=== PATIENT | male | born 1945 | race Caucasian/White ===

== ENCOUNTER 2019-03-14 22:04 | Inpatient (IN) | payer MEDICARE ==
[~2019-03-14] VITALS: Ht 172.7 cm; Wt 55.8 kg
[~2019-03-14 22:04] MED LIST: IPRA4AER INH; LEVO500T47 PO; METH2TAB PO
--- NOTE | 2019-03-14 22:14 | NUR ---
PT BIB [facility] FOR SOB FROM [facility]. PT NORMALLY WEARS 2 L O2 FOR COPD. PT WOKE UP FROM [facility] WITHOUT O2 ON AND WAS 76 ON RA. 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 O2 SATS IMPROVED WITH BREATHIN TREATMENT. VSS. RT AT BEDSIDE. CALL LIGHT IN REACH
[2019-03-14] MEDS ORDERED: PLEASE ENTER HEIGHT AND WEIGHT MC SCH (22:30)
--- NOTE | 2019-03-14 22:35 | NUR ---
PT MEDICATED WITH PREDNISONE. PT SATING 86 ON 2 L. O2 INCREASED TO 4 L. PA NOTIFIED OF PTS INCREASED DEMAND. PT IN NAD, CALL LIGHT IN REACH
[2019-03-14 22:38] LABS: BASOPHILS # (AUTO) 0.04 x10^3/uL (0-0.1); BASOPHILS % (AUTO) 0 % (0-1); EOSINOPHILS # (AUTO) 0.24 x10^3/uL (0-0.4); EOSINOPHILS % (AUTO) 2 % (1-7); LYMPHOCYTES # (AUTO) 1.55 x10^3/uL (1-3.4); LYMPHOCYTES % (AUTO) 12 % (22-44); MD NO; MEAN CORPUSCULAR HEMOGLOBIN 32.7 pg (27.5-34.5); MEAN CORPUSCULAR HGB CONC 31.9 g/dL (33.2-36.2); MEAN CORPUSCULAR VOLUME 102.5 fL (81-97); MEAN PLATELET VOLUME 9.4 fL (7.4-10.4); MONOCYTES # (AUTO) 1.25 x10^3/uL (0.2-0.8); MONOCYTES % (AUTO) 10 % (2-9); NEUTROPHILS # (AUTO) 9.71 x10^3/uL (1.8-6.8); NEUTROPHILS % (AUTO) 76 % (42-75); PLATELET COUNT 181 x10^3/uL (130-400); RED BLOOD COUNT 4.92 x10^6/uL (4.38-5.82); RED CELL DISTRIBUTION WIDTH 15.3 % (9.4-14.8)
[2019-03-14 22:48] LABS: ANION GAP 2 mmol/L (5-15); CALCIUM 8.1 mg/dL (8.5-10.1); CHLORIDE 112 mmol/L (98-107); CREATININE 0.87 mg/dL (0.7-1.3)
[2019-03-14 22:49] LABS: ALBUMIN 3.5 g/dL (3.4-5.0)
[2019-03-14 22:52] LABS: TROPONIN I < 0.015 ng/mL (0.000-0.045)
--- NOTE | 2019-03-14 23:46 | NUR ---
Jamaal rn: Awaiting blood cultures for abx.
[2019-03-14] MEDS ORDERED: CEFTRIAXONE PMX 1GM/50ML 50 ML ONE (23:47)
[2019-03-15] MEDS ORDERED: CEFTRIAXONE PMX 1GM/50ML 50 ML IVPB ONE
[2019-03-15 02:30] VITALS: BP 138/78
[2019-03-15] MEDS ORDERED: ENALAPRILAT 1.25 MG/ML, 2ML IVPush PRN (02:30)
[2019-03-15] MEDS ORDERED: ACETAMINOPHEN 325 MG TABLET PO PRN (02:30)
[2019-03-15] MEDS ORDERED: ALBUTEROL/IPRATROPIUM 2.5MG/0.5MG, 3 ML NPPB PRN (02:30)
[2019-03-15] MEDS: AZITHROMYCIN 500 MG in SODIUM CHLORIDE 0.9% 250 ML IV SCH (03:10)
[2019-03-15] MEDS: ENOXAPARIN 40 MG/0.4 ML SQ SCH (03:10)
[2019-03-15] MEDS: methylPREDNISolone SOD SUCC 125 MG/2 ML IVPush SCH ×4 (03:10→20:12)
[2019-03-15 04:36] VITALS: BP 138/78
[2019-03-15 06:48] VITALS: BP 124/70
[2019-03-15] MEDS: GUAIFENESIN ER 600 MG TABLET PO SCH ×2 (11:09→20:12)
[2019-03-15 12:37] VITALS: BP 117/71
[2019-03-15 20:59] VITALS: BP 119/64
[2019-03-15 21:48] LABS: AMPHETAMINE SCREEN, URINE Negative (Negative); BARBITURATE SCREEN, URINE Negative (Negative); BENZODIAZEPINE SCREEN, URINE Positive (Negative); CANNABINOID SCREEN, URINE Positive (Negative); COCAINE SCREEN, URINE Negative (Negative); METHADONE SCREEN, URINE Negative (Negative); OPIATE SCREEN, URINE Negative (Negative)
[2019-03-16] MEDS: CEFTRIAXONE PMX 1GM/50ML 50 ML IV SCH (00:10)
[2019-03-16 02:00] VITALS: BP 122/65
[2019-03-16] MEDS: methylPREDNISolone SOD SUCC 125 MG/2 ML IVPush SCH ×4 (02:41→22:45)
[2019-03-16] MEDS: AZITHROMYCIN 500 MG in SODIUM CHLORIDE 0.9% 250 ML IV SCH (02:42)
[2019-03-16 07:05] VITALS: BP 111/57
[2019-03-16] MEDS: GUAIFENESIN ER 600 MG TABLET PO SCH ×2 (08:48→22:46)
[2019-03-16] MEDS: ENOXAPARIN 40 MG/0.4 ML SQ SCH (08:48)
[2019-03-16 14:00] VITALS: BP 115/62
[2019-03-16 19:34] VITALS: BP 131/64
[2019-03-17] MEDS: CEFTRIAXONE PMX 1GM/50ML 50 ML IV SCH (00:19)
[2019-03-17 01:03] VITALS: BP 136/68
[2019-03-17] MEDS: methylPREDNISolone SOD SUCC 125 MG/2 ML IVPush SCH ×3 (03:40→15:42)
[2019-03-17] MEDS: AZITHROMYCIN 500 MG in SODIUM CHLORIDE 0.9% 250 ML IV SCH (03:40)
[2019-03-17 04:56] LABS: ANION GAP 4 mmol/L (5-15); CALCIUM 7.9 mg/dL (8.5-10.1); CHLORIDE 109 mmol/L (98-107)
[2019-03-17 07:23] VITALS: BP 138/77
[2019-03-17] MEDS: GUAIFENESIN ER 600 MG TABLET PO SCH (09:38)
[2019-03-17] MEDS: ENOXAPARIN 40 MG/0.4 ML SQ SCH (09:38)
[2019-03-17] MEDS ORDERED: AZIT500T PO (12:31)
[2019-03-17] MEDS ORDERED: CEFD300C37 PO (12:31)
[2019-03-17] MEDS ORDERED: GUAI600T31 PO (12:31)
[2019-03-17] MEDS ORDERED: PRED10TA PO (12:31)
[2019-03-17] MEDS ORDERED: TIOT18CA INH (12:41)
[2019-03-17] MEDS ORDERED: FLUT1DIS3 INH (12:41)
[2019-03-17] MEDS ORDERED: IPRA3AMP30 INH (12:41)
[2019-03-17 12:53] VITALS: BP 132/70
== END 2019-03-17 18:25 | disposition home or self-care (01) | DRG 871 ==
LOC: ED 22:54 → EDIP 03-15 01:13 → 3N 03-15 02:20
PROVIDERS: ADMIT Family Medicine; ATTEND Internal Medicine
DX: A41.9 Sepsis, unspecified organism (principal); J15.9 Unspecified bacterial pneumonia; J96.21 Acute and chronic respiratory failure with hypoxia; D75.89 Other specified diseases of blood and blood-forming organs; J43.9 Emphysema, unspecified; Z59.0 Homelessness; Z91.19 Patient's noncompliance with other medical treatment and regimen; Z99.81 Dependence on supplemental oxygen; Z72.0 Tobacco use
CPT/HCPCS: 36415; 36600; 71045; 80048; 80307; 82040; 82607; 82803; 83605; 84145; 84443; 84484; 85025; 87040; 93005; 94640; 96365; G0378; J0456; J0696; J1650; J2930; J7050; J7512

== ENCOUNTER 2019-10-15 15:10 | Inpatient (IN) | payer MEDICARE ==
[~2019-10-15] VITALS: Ht 172.7 cm; Wt 57.0 kg
[~2019-10-15 15:10] MED LIST changes: +AZIT500T PO; +CEFD300C37 PO; +FLUT1DIS3 INH; +GUAI600T31 PO; +IPRA3AMP30 INH; +PRED10TA PO; +TIOT18CA INH
--- NOTE | 2019-10-15 15:29 | NUR ---
BREAK RN. PT BIB [facility] FROM [facility] [place]. PT STATES C/C SOB AND CHRONIC COUGH. PT STATES HE SHOULD BE WEARING HOME O2, HOWEVER HAS NOT HAD HOME O2 X2 MONTHS. PER EMS, PT'S RA SAT 78%, CORRECTED TO 98% WITH 2L NC. PT DENIES CP CURRENTLY. PT PLACED ON MONITORS AND EKG COMPLETED. AWAITING ERMD ASSESSMENT.
[2019-10-15 15:59] LABS: BASOPHILS # (AUTO) 0.01 x10^3/uL (0-0.1); BASOPHILS % (AUTO) 0 % (0-1); EOSINOPHILS # (AUTO) 0.11 x10^3/uL (0-0.4); EOSINOPHILS % (AUTO) 2 % (1-7); LYMPHOCYTES # (AUTO) 1.03 x10^3/uL (1-3.4); LYMPHOCYTES % (AUTO) 15 % (22-44); MD NO; MEAN CORPUSCULAR HEMOGLOBIN 32.1 pg (27.5-34.5); MEAN CORPUSCULAR HGB CONC 32.9 g/dL (33.2-36.2); MEAN PLATELET VOLUME 9.9 fL (7.4-10.4); MONOCYTES # (AUTO) 0.67 x10^3/uL (0.2-0.8); MONOCYTES % (AUTO) 10 % (2-9); NEUTROPHILS # (AUTO) 4.95 x10^3/uL (1.8-6.8); NEUTROPHILS % (AUTO) 73 % (42-75); PLATELET COUNT 163 x10^3/uL (130-400); RED BLOOD COUNT 5.42 x10^6/uL (4.38-5.82); RED CELL DISTRIBUTION WIDTH 14.5 % (9.4-14.8)
[2019-10-15 16:14] LABS: ALANINE AMINOTRANSFERASE 20 U/L (12-78); ALBUMIN 3.1 g/dL (3.4-5.0); ANION GAP 4 mmol/L (5-15); CHLORIDE 112 mmol/L (98-107); CREATININE 0.96 mg/dL (0.7-1.3)
[2019-10-15 16:17] LABS: ALKALINE PHOSPHATASE 71 U/L (45-117); BILIRUBIN,TOTAL 0.5 mg/dL (0.2-1.0); TOTAL PROTEIN 6.3 g/dL (6.4-8.2); TROPONIN I < 0.015 ng/mL (0.000-0.045)
[2019-10-15] MEDS ORDERED: ALBUTEROL SULFATE 2.5 MG/3 ML NPPB ONE (16:30)
[2019-10-15] MEDS ORDERED: methylPREDNISolone SOD SUCC 125 MG/2 ML IV ONE (16:30)
[2019-10-15] MEDS ORDERED: FUROSEMIDE 40 MG/4 ML IV ONE (16:30)
[2019-10-15] MEDS ORDERED: FUROSEMIDE 40 MG/4 ML ONE (16:41)
[2019-10-15] MEDS ORDERED: methylPREDNISolone SOD SUCC 125 MG/2 ML ONE (16:41)
[2019-10-15] MEDS ORDERED: ALBUTEROL SULFATE 2.5 MG/3 ML ONE (16:41)
--- NOTE | 2019-10-15 18:10 | NUR ---
PT REPORTS FEELING MUCH BETTER AFTER MEDICATIONS, CALM RESTING IN BED. HAS NO REQUEST AT THIS TIME.
--- NOTE | 2019-10-15 18:14 | NUR ---
PT REPORTS THAT HE SHOULD BE ON 2L NC AT ALL TIMES BUT RAN OUT ABOUT A MONTH AGO.
[2019-10-15] MEDS ORDERED: DOXYCYCLINE 100 MG in DEXTROSE 5% 250 ML IV SCH (19:30)
[2019-10-15] MEDS ORDERED: ONDANSETRON 2MG/ML, 2ML IVPush PRN (19:30)
--- NOTE | 2019-10-15 19:52 | NUR ---
Pt states he has not taken any of his rx in approx 3 months.
[2019-10-15 20:06] VITALS: BP 129/77
[2019-10-15] MEDS ORDERED: ALBUTEROL SULFATE 2.5 MG/3 ML NPPB PRN (20:30)
[2019-10-15] MEDS: DOXYCYCLINE 100MG TABLET PO SCH (20:40)
[2019-10-16 02:57] VITALS: BP 104/64
[2019-10-16 06:25] LABS: BASOPHILS # (AUTO) 0.02 x10^3/uL (0-0.1); BASOPHILS % (AUTO) 0 % (0-1); EOSINOPHILS # (AUTO) 0.02 x10^3/uL (0-0.4); EOSINOPHILS % (AUTO) 0 % (1-7); LYMPHOCYTES # (AUTO) 0.51 x10^3/uL (1-3.4); LYMPHOCYTES % (AUTO) 6 % (22-44); MD NO; MEAN CORPUSCULAR HEMOGLOBIN 31.7 pg (27.5-34.5); MEAN CORPUSCULAR HGB CONC 32.1 g/dL (33.2-36.2); MEAN PLATELET VOLUME 10.3 fL (7.4-10.4); MONOCYTES # (AUTO) 0.16 x10^3/uL (0.2-0.8); MONOCYTES % (AUTO) 2 % (2-9); NEUTROPHILS # (AUTO) 8.27 x10^3/uL (1.8-6.8); NEUTROPHILS % (AUTO) 92 % (42-75); PLATELET COUNT 160 x10^3/uL (130-400); RED BLOOD COUNT 5.53 x10^6/uL (4.38-5.82); RED CELL DISTRIBUTION WIDTH 14.2 % (9.4-14.8)
[2019-10-16 06:26] LABS: ANION GAP 3 mmol/L (5-15); CALCIUM 8.6 mg/dL (8.5-10.1); CHLORIDE 107 mmol/L (98-107); CREATININE 0.97 mg/dL (0.7-1.3)
[2019-10-16 06:29] LABS: TROPONIN I < 0.015 ng/mL (0.000-0.045)
[2019-10-16] MEDS ORDERED: ALBUTEROL/IPRATROPIUM 2.5MG/0.5MG, 3 ML NPPB SCH ×2 (07:00→15:00)
[2019-10-16 07:34] VITALS: BP 96/63
[2019-10-16] MEDS: ENOXAPARIN 40 MG/0.4 ML SQ SCH (08:00)
[2019-10-16] MEDS: DOXYCYCLINE 100MG TABLET PO SCH (08:30)
[2019-10-16] MEDS ORDERED: BUDESONIDE 0.5 MG/2 ML INHA NPPB SCH (09:00)
[2019-10-16] MEDS: GUAIFENESIN 200 MG TABLET PO SCH ×3 (11:27→20:23)
[2019-10-16 15:11] VITALS: BP 112/63
[2019-10-16 17:10] VITALS: BP 143/89
[2019-10-16 19:14] VITALS: BP 101/57
[2019-10-17 00:45] VITALS: BP 95/57
[2019-10-17] MEDS: GUAIFENESIN 200 MG TABLET PO SCH ×4 (05:25→20:46)
[2019-10-17] MEDS: ALBUTEROL SULFATE 200 PUFFS/8.5 GR INH INH PRN (05:49)
[2019-10-17] MEDS: ALBUTEROL-IPRATROPIUM MDI INH INH SCH ×4 (06:27→20:46)
[2019-10-17 07:07] VITALS: BP 114/71
[2019-10-17] MEDS: ENOXAPARIN 40 MG/0.4 ML SQ SCH (08:00)
[2019-10-17] MEDS: FLUTICASONE/VILANTEROL 200-25MCG/INH INH SCH ×2 (08:18→20:46)
[2019-10-17] MEDS: AZITHROMYCIN 500 MG TABLET PO SCH (08:18)
[2019-10-17 14:04] VITALS: BP 104/51
[2019-10-17] MEDS: methylPREDNISolone SOD SUCC 40 MG/ML IV SCH (15:39)
[2019-10-17 19:13] VITALS: BP 111/66
[2019-10-18 00:08] VITALS: BP 115/70
[2019-10-18] MEDS: GUAIFENESIN 200 MG TABLET PO SCH ×4 (05:06→20:04)
[2019-10-18] MEDS: ALBUTEROL-IPRATROPIUM MDI INH INH SCH ×4 (05:06→20:03)
[2019-10-18] MEDS: methylPREDNISolone SOD SUCC 40 MG/ML IV SCH ×3 (05:06→20:03)
[2019-10-18 07:51] VITALS: BP 134/80
[2019-10-18] MEDS: ENOXAPARIN 40 MG/0.4 ML SQ SCH (08:00)
[2019-10-18] MEDS: AZITHROMYCIN 500 MG TABLET PO SCH (09:35)
[2019-10-18] MEDS: FLUTICASONE/VILANTEROL 200-25MCG/INH INH SCH ×2 (09:35→20:03)
[2019-10-18 13:15] VITALS: BP 116/72
[2019-10-18 19:22] VITALS: BP 115/61
[2019-10-19 00:57] VITALS: BP 101/63
[2019-10-19] MEDS: ALBUTEROL-IPRATROPIUM MDI INH INH SCH ×4 (05:36→21:53)
[2019-10-19] MEDS: GUAIFENESIN 200 MG TABLET PO SCH ×4 (05:36→21:52)
[2019-10-19] MEDS: ENOXAPARIN 40 MG/0.4 ML SQ SCH (08:00)
[2019-10-19 08:37] VITALS: BP 129/77
[2019-10-19] MEDS: AZITHROMYCIN 500 MG TABLET PO SCH (10:22)
[2019-10-19] MEDS: SODIUM CHLORIDE 0.9% 1,000 ML IV SCH (10:22)
[2019-10-19] MEDS: FLUTICASONE/VILANTEROL 200-25MCG/INH INH SCH ×2 (10:22→21:53)
[2019-10-19] MEDS ORDERED: BENZ100C PO (13:44)
[2019-10-19 14:06] VITALS: BP 120/77
[2019-10-19 19:48] VITALS: BP 113/55
[2019-10-20 01:37] VITALS: BP 125/83
[2019-10-20] MEDS: ALBUTEROL-IPRATROPIUM MDI INH INH SCH ×4 (06:13→22:09)
[2019-10-20] MEDS: GUAIFENESIN 200 MG TABLET PO SCH ×4 (06:13→22:09)
[2019-10-20 06:14] LABS: CHLORIDE 107 mmol/L (98-107)
[2019-10-20 06:20] LABS: ANION GAP 4 mmol/L (5-15); CALCIUM 7.7 mg/dL (8.5-10.1); CREATININE 0.88 mg/dL (0.7-1.3)
[2019-10-20 07:57] VITALS: BP 103/62
[2019-10-20] MEDS: ENOXAPARIN 40 MG/0.4 ML SQ SCH (08:00)
[2019-10-20] MEDS: FLUTICASONE/VILANTEROL 200-25MCG/INH INH SCH ×2 (08:30→22:09)
[2019-10-20] MEDS: AZITHROMYCIN 500 MG TABLET PO SCH (08:30)
[2019-10-20] MEDS: SODIUM CHLORIDE 0.9% 1,000 ML IV SCH ×2 (08:38→22:09)
[2019-10-20 14:04] VITALS: BP 103/65
[2019-10-20 20:01] VITALS: BP 115/79
[2019-10-21 01:10] VITALS: BP 114/57
[2019-10-21] MEDS: GUAIFENESIN 200 MG TABLET PO SCH (06:06)
[2019-10-21] MEDS: ALBUTEROL-IPRATROPIUM MDI INH INH SCH ×4 (06:06→21:19)
[2019-10-21 06:49] VITALS: BP 99/55
[2019-10-21] MEDS: ENOXAPARIN 40 MG/0.4 ML SQ SCH (08:00)
[2019-10-21] MEDS: FLUTICASONE/VILANTEROL 200-25MCG/INH INH SCH ×2 (10:02→21:19)
[2019-10-21] MEDS: BENZONATATE 100 MG CAPSULE PO SCH ×3 (10:02→21:18)
[2019-10-21 12:35] VITALS: BP 121/59
[2019-10-21] MEDS: SODIUM CHLORIDE 0.9% 1,000 ML IV SCH (14:30)
[2019-10-21] MEDS: ALBUTEROL SULFATE 200 PUFFS/8.5 GR INH INH PRN (16:26)
[2019-10-21 19:33] VITALS: BP 98/51
[2019-10-22 01:18] VITALS: BP 114/66
[2019-10-22] MEDS: ALBUTEROL-IPRATROPIUM MDI INH INH SCH ×4 (06:02→20:56)
[2019-10-22] MEDS: SODIUM CHLORIDE 0.9% 1,000 ML IV SCH ×2 (06:02→21:02)
[2019-10-22 07:41] VITALS: BP 119/65
[2019-10-22] MEDS: ENOXAPARIN 40 MG/0.4 ML SQ SCH (08:00)
[2019-10-22] MEDS: BENZONATATE 100 MG CAPSULE PO SCH ×3 (08:08→20:57)
[2019-10-22] MEDS: FLUTICASONE/VILANTEROL 200-25MCG/INH INH SCH ×2 (08:08→20:56)
[2019-10-22] MEDS: ALBUTEROL SULFATE 200 PUFFS/8.5 GR INH INH PRN (11:38)
[2019-10-22 13:36] VITALS: BP 120/73
[2019-10-22 19:55] VITALS: BP 125/68
[2019-10-23 00:32] VITALS: BP 105/59
[2019-10-23] MEDS: ALBUTEROL-IPRATROPIUM MDI INH INH SCH ×4 (05:48→20:50)
[2019-10-23 07:40] VITALS: BP 120/77
[2019-10-23] MEDS: ENOXAPARIN 40 MG/0.4 ML SQ SCH (08:00)
[2019-10-23] MEDS: FLUTICASONE/VILANTEROL 200-25MCG/INH INH SCH ×2 (08:27→20:50)
[2019-10-23] MEDS: BENZONATATE 100 MG CAPSULE PO SCH ×3 (08:27→20:51)
[2019-10-23] MEDS: SODIUM CHLORIDE 0.9% 1,000 ML IV SCH (13:25)
[2019-10-23 13:28] VITALS: BP 107/61
[2019-10-23 13:30] VITALS: BP 99/60
[2019-10-23] MEDS: ALBUTEROL SULFATE 200 PUFFS/8.5 GR INH INH PRN (15:28)
[2019-10-23 16:11] VITALS: BP 128/76
[2019-10-23 20:11] VITALS: BP 104/60
[2019-10-24 01:12] VITALS: BP 127/78
[2019-10-24] MEDS: ALBUTEROL-IPRATROPIUM MDI INH INH SCH ×4 (05:17→21:54)
[2019-10-24 07:28] VITALS: BP 104/67
[2019-10-24] MEDS: ENOXAPARIN 40 MG/0.4 ML SQ SCH (08:59)
[2019-10-24] MEDS: FLUTICASONE/VILANTEROL 200-25MCG/INH INH SCH ×2 (08:59→21:53)
[2019-10-24] MEDS: BENZONATATE 100 MG CAPSULE PO SCH ×3 (08:59→21:53)
[2019-10-24] MEDS: SODIUM CHLORIDE 0.9% 1,000 ML IV SCH (09:39)
[2019-10-24 14:12] VITALS: BP 112/70
[2019-10-24 14:39] VITALS: BP 99/62
[2019-10-24 21:30] VITALS: BP 118/74
[2019-10-25 01:24] VITALS: BP 118/71
[2019-10-25 05:32] LABS: CREATININE 0.68 mg/dL (0.7-1.3)
[2019-10-25] MEDS: ALBUTEROL-IPRATROPIUM MDI INH INH SCH ×4 (06:00→21:58)
[2019-10-25] MEDS: ENOXAPARIN 40 MG/0.4 ML SQ SCH (08:00)
[2019-10-25] MEDS: FLUTICASONE/VILANTEROL 200-25MCG/INH INH SCH ×2 (08:29→21:58)
[2019-10-25] MEDS: BENZONATATE 100 MG CAPSULE PO SCH ×3 (08:29→21:58)
[2019-10-25 08:33] VITALS: BP 100/64
[2019-10-25 12:41] VITALS: BP 115/68
[2019-10-25 21:23] VITALS: BP 116/71
[2019-10-26 00:57] VITALS: BP 103/48
[2019-10-26] MEDS: ALBUTEROL-IPRATROPIUM MDI INH INH SCH ×4 (06:17→21:51)
[2019-10-26 07:53] VITALS: BP 120/71
[2019-10-26] MEDS: ENOXAPARIN 40 MG/0.4 ML SQ SCH (08:00)
[2019-10-26] MEDS: BENZONATATE 100 MG CAPSULE PO SCH ×3 (09:02→21:49)
[2019-10-26] MEDS: FLUTICASONE/VILANTEROL 200-25MCG/INH INH SCH ×2 (09:02→21:51)
[2019-10-26 14:32] VITALS: BP 107/66
[2019-10-26 21:44] VITALS: BP 116/70
[2019-10-27 01:50] VITALS: BP 100/65
[2019-10-27] MEDS: ALBUTEROL-IPRATROPIUM MDI INH INH SCH ×4 (07:55→21:32)
[2019-10-27] MEDS: FLUTICASONE/VILANTEROL 200-25MCG/INH INH SCH ×2 (07:55→21:31)
[2019-10-27] MEDS: ENOXAPARIN 40 MG/0.4 ML SQ SCH ×2 (07:55→07:57)
[2019-10-27] MEDS: BENZONATATE 100 MG CAPSULE PO SCH ×3 (07:56→21:31)
[2019-10-27 09:29] VITALS: BP 91/54
[2019-10-27 09:42] VITALS: BP 103/65
[2019-10-27 15:53] VITALS: BP 109/67
[2019-10-27 21:26] VITALS: BP 106/63
[2019-10-28 01:07] VITALS: BP 98/61
[2019-10-28] MEDS: ALBUTEROL-IPRATROPIUM MDI INH INH SCH ×3 (06:34→16:48)
[2019-10-28 06:56] VITALS: BP 107/67
[2019-10-28] MEDS: ENOXAPARIN 40 MG/0.4 ML SQ SCH ×2 (08:00→08:14)
[2019-10-28] MEDS: FLUTICASONE/VILANTEROL 200-25MCG/INH INH SCH ×2 (08:14→20:23)
[2019-10-28] MEDS: BENZONATATE 100 MG CAPSULE PO SCH ×3 (08:14→20:23)
[2019-10-28] MEDS: ALBUTEROL SULFATE 200 PUFFS/8.5 GR INH INH PRN (11:03)
[2019-10-28 13:34] VITALS: BP 111/69
[2019-10-28 18:58] VITALS: BP 108/66
[2019-10-28] MEDS ORDERED: FUROSEMIDE 20 MG/2 ML IV ONE (19:00)
[2019-10-28] MEDS: BUDESONIDE 0.5 MG/2 ML INHA NPPB SCH (19:59)
[2019-10-28] MEDS: ALBUTEROL/IPRATROPIUM 2.5MG/0.5MG, 3 ML NPPB SCH (19:59)
[2019-10-29 01:33] VITALS: BP 106/65
[2019-10-29 06:07] LABS: BASOPHILS # (AUTO) 0.03 x10^3/uL (0-0.1); BASOPHILS % (AUTO) 0 % (0-1); EOSINOPHILS # (AUTO) 0.16 x10^3/uL (0-0.4); EOSINOPHILS % (AUTO) 2 % (1-7); LYMPHOCYTES # (AUTO) 1.23 x10^3/uL (1-3.4); LYMPHOCYTES % (AUTO) 13 % (22-44); MD NO; MEAN CORPUSCULAR HEMOGLOBIN 32.2 pg (27.5-34.5); MEAN CORPUSCULAR HGB CONC 33.1 g/dL (33.2-36.2); MEAN PLATELET VOLUME 9.2 fL (7.4-10.4); MONOCYTES # (AUTO) 0.89 x10^3/uL (0.2-0.8); MONOCYTES % (AUTO) 10 % (2-9); NEUTROPHILS # (AUTO) 7.12 x10^3/uL (1.8-6.8); NEUTROPHILS % (AUTO) 76 % (42-75); PLATELET COUNT 193 x10^3/uL (130-400); RED BLOOD COUNT 5.07 x10^6/uL (4.38-5.82); RED CELL DISTRIBUTION WIDTH 14.6 % (9.4-14.8)
[2019-10-29 06:13] LABS: ANION GAP 1 mmol/L (5-15); CHLORIDE 106 mmol/L (98-107); CREATININE 0.86 mg/dL (0.7-1.3)
[2019-10-29] MEDS: ALBUTEROL/IPRATROPIUM 2.5MG/0.5MG, 3 ML NPPB SCH ×3 (06:30→19:16)
[2019-10-29] MEDS: BUDESONIDE 0.5 MG/2 ML INHA NPPB SCH ×2 (06:30→19:16)
[2019-10-29 06:37] VITALS: BP 115/73
[2019-10-29] MEDS: BENZONATATE 100 MG CAPSULE PO SCH ×3 (07:59→20:06)
[2019-10-29] MEDS: FLUTICASONE/VILANTEROL 200-25MCG/INH INH SCH ×2 (08:00→20:06)
[2019-10-29] MEDS: ENOXAPARIN 40 MG/0.4 ML SQ SCH (08:00)
[2019-10-29 12:23] VITALS: BP 100/64
[2019-10-29 19:32] VITALS: BP 106/62
[2019-10-29 19:42] VITALS: BP 121/72
[2019-10-30 01:16] VITALS: BP 103/59
[2019-10-30] MEDS: ALBUTEROL/IPRATROPIUM 2.5MG/0.5MG, 3 ML NPPB SCH ×4 (03:00→21:25)
[2019-10-30] MEDS: BUDESONIDE 0.5 MG/2 ML INHA NPPB SCH ×2 (06:55→21:25)
[2019-10-30 07:30] VITALS: BP 121/74
[2019-10-30] MEDS: ENOXAPARIN 40 MG/0.4 ML SQ SCH (08:00)
[2019-10-30] MEDS: FLUTICASONE/VILANTEROL 200-25MCG/INH INH SCH ×2 (08:55→20:03)
[2019-10-30] MEDS: BENZONATATE 100 MG CAPSULE PO SCH ×3 (08:55→20:03)
[2019-10-30 14:09] VITALS: BP 116/69
[2019-10-30 20:03] VITALS: BP 111/68
[2019-10-31 01:15] VITALS: BP 105/66
[2019-10-31] MEDS: ALBUTEROL/IPRATROPIUM 2.5MG/0.5MG, 3 ML NPPB SCH ×4 (03:00→20:40)
[2019-10-31 05:44] LABS: ANION GAP 7 mmol/L (5-15); CALCIUM 8.6 mg/dL (8.5-10.1); CHLORIDE 109 mmol/L (98-107)
[2019-10-31 05:45] LABS: CREATININE 0.73 mg/dL (0.7-1.3)
[2019-10-31 05:55] LABS: BASOPHILS # (AUTO) 0.04 x10^3/uL (0-0.1); BASOPHILS % (AUTO) 0 % (0-1); EOSINOPHILS # (AUTO) 0.04 x10^3/uL (0-0.4); EOSINOPHILS % (AUTO) 0 % (1-7); LYMPHOCYTES # (AUTO) 1.09 x10^3/uL (1-3.4); LYMPHOCYTES % (AUTO) 9 % (22-44); MD NO; MEAN CORPUSCULAR HEMOGLOBIN 31.9 pg (27.5-34.5); MEAN CORPUSCULAR HGB CONC 32.6 g/dL (33.2-36.2); MEAN PLATELET VOLUME 9.6 fL (7.4-10.4); MONOCYTES # (AUTO) 0.83 x10^3/uL (0.2-0.8); MONOCYTES % (AUTO) 7 % (2-9); NEUTROPHILS # (AUTO) 10.21 x10^3/uL (1.8-6.8); NEUTROPHILS % (AUTO) 84 % (42-75); PLATELET COUNT 205 x10^3/uL (130-400); RED BLOOD COUNT 5.07 x10^6/uL (4.38-5.82); RED CELL DISTRIBUTION WIDTH 14.5 % (9.4-14.8)
[2019-10-31] MEDS: BUDESONIDE 0.5 MG/2 ML INHA NPPB SCH ×2 (07:13→20:40)
[2019-10-31] MEDS: ENOXAPARIN 40 MG/0.4 ML SQ SCH (08:00)
[2019-10-31] MEDS: BENZONATATE 100 MG CAPSULE PO SCH ×3 (08:44→21:59)
[2019-10-31] MEDS: FLUTICASONE/VILANTEROL 200-25MCG/INH INH SCH ×2 (08:44→21:59)
[2019-10-31 09:00] VITALS: BP 113/73
[2019-10-31 13:53] VITALS: BP 125/72
[2019-10-31 15:00] VITALS: BP 122/75
[2019-10-31 15:02] VITALS: BP 121/71
[2019-10-31 19:13] VITALS: BP 109/60
[2019-11-01 01:01] VITALS: BP 125/64
[2019-11-01] MEDS: ALBUTEROL/IPRATROPIUM 2.5MG/0.5MG, 3 ML NPPB SCH ×2 (03:00→07:19)
[2019-11-01 06:06] LABS: BASOPHILS # (AUTO) 0.02 x10^3/uL (0-0.1); BASOPHILS % (AUTO) 0 % (0-1); EOSINOPHILS # (AUTO) 0.06 x10^3/uL (0-0.4); EOSINOPHILS % (AUTO) 1 % (1-7); LYMPHOCYTES # (AUTO) 1.12 x10^3/uL (1-3.4); LYMPHOCYTES % (AUTO) 11 % (22-44); MD NO; MEAN CORPUSCULAR HEMOGLOBIN 31.9 pg (27.5-34.5); MEAN CORPUSCULAR HGB CONC 32.3 g/dL (33.2-36.2); MEAN PLATELET VOLUME 9.4 fL (7.4-10.4); MONOCYTES # (AUTO) 0.73 x10^3/uL (0.2-0.8); MONOCYTES % (AUTO) 7 % (2-9); NEUTROPHILS # (AUTO) 8.76 x10^3/uL (1.8-6.8); NEUTROPHILS % (AUTO) 82 % (42-75); PLATELET COUNT 193 x10^3/uL (130-400); RED BLOOD COUNT 4.86 x10^6/uL (4.38-5.82); RED CELL DISTRIBUTION WIDTH 14.4 % (9.4-14.8)
[2019-11-01] MEDS: BUDESONIDE 0.5 MG/2 ML INHA NPPB SCH (07:20)
[2019-11-01 07:45] VITALS: BP 132/69
[2019-11-01] MEDS: FLUTICASONE/VILANTEROL 200-25MCG/INH INH SCH ×2 (09:46→20:15)
[2019-11-01] MEDS: ENOXAPARIN 40 MG/0.4 ML SQ SCH (09:46)
[2019-11-01] MEDS: BENZONATATE 100 MG CAPSULE PO SCH ×3 (09:46→20:15)
[2019-11-01 15:03] VITALS: BP 118/71
[2019-11-01 18:30] VITALS: BP 123/76
[2019-11-02 00:21] VITALS: BP 105/58
[2019-11-02 05:28] LABS: BASOPHILS # (AUTO) 0.07 x10^3/uL (0-0.1); BASOPHILS % (AUTO) 1 % (0-1); EOSINOPHILS # (AUTO) 0.06 x10^3/uL (0-0.4); EOSINOPHILS % (AUTO) 1 % (1-7); LYMPHOCYTES % (AUTO) 12 % (22-44); MD NO; MEAN CORPUSCULAR HEMOGLOBIN 31.6 pg (27.5-34.5); MEAN CORPUSCULAR HGB CONC 32.4 g/dL (33.2-36.2); MEAN PLATELET VOLUME 9.6 fL (7.4-10.4); MONOCYTES # (AUTO) 0.83 x10^3/uL (0.2-0.8); MONOCYTES % (AUTO) 8 % (2-9); NEUTROPHILS # (AUTO) 8.04 x10^3/uL (1.8-6.8); NEUTROPHILS % (AUTO) 79 % (42-75); PLATELET COUNT 199 x10^3/uL (130-400); RED BLOOD COUNT 4.94 x10^6/uL (4.38-5.82); RED CELL DISTRIBUTION WIDTH 14.3 % (9.4-14.8)
[2019-11-02 05:37] LABS: ANION GAP 6 mmol/L (5-15); CALCIUM 8.5 mg/dL (8.5-10.1); CHLORIDE 107 mmol/L (98-107)
[2019-11-02 05:38] LABS: CREATININE 0.69 mg/dL (0.7-1.3)
[2019-11-02] MEDS: ENOXAPARIN 40 MG/0.4 ML SQ SCH (07:15)
[2019-11-02] MEDS: FLUTICASONE/VILANTEROL 200-25MCG/INH INH SCH ×2 (08:49→20:57)
[2019-11-02] MEDS: BENZONATATE 100 MG CAPSULE PO SCH ×3 (08:49→20:26)
[2019-11-02 08:55] VITALS: BP 122/71
[2019-11-02 13:34] VITALS: BP 101/63
[2019-11-02 18:27] VITALS: BP 105/69
[2019-11-02 23:49] VITALS: BP 98/61
[2019-11-03 01:54] VITALS: BP 115/71
[2019-11-03] MEDS: ENOXAPARIN 40 MG/0.4 ML SQ SCH (07:18)
[2019-11-03] MEDS: FLUTICASONE/VILANTEROL 200-25MCG/INH INH SCH ×2 (08:14→22:49)
[2019-11-03] MEDS: BENZONATATE 100 MG CAPSULE PO SCH ×3 (08:14→22:49)
[2019-11-03 08:41] VITALS: BP 95/57
[2019-11-03] MEDS: IPRATROPIUM 0.5 MG/2.5 ML INHA HHN SCH ×3 (09:30→21:07)
[2019-11-03 13:02] VITALS: BP 101/57
[2019-11-03] MEDS ORDERED: FLUT1BLS INH (16:20)
[2019-11-03] MEDS ORDERED: PRED10TA PO (16:22)
[2019-11-03 18:44] VITALS: BP 109/70
[2019-11-04] MEDS: IPRATROPIUM 0.5 MG/2.5 ML INHA HHN SCH ×2 (03:15→07:43)
[2019-11-04 05:23] LABS: BASOPHILS # (AUTO) 0.02 x10^3/uL (0-0.1); BASOPHILS % (AUTO) 0 % (0-1); EOSINOPHILS # (AUTO) 0.05 x10^3/uL (0-0.4); EOSINOPHILS % (AUTO) 1 % (1-7); LYMPHOCYTES % (AUTO) 14 % (22-44); MD NO; MEAN CORPUSCULAR HGB CONC 32.7 g/dL (33.2-36.2); MEAN PLATELET VOLUME 9.1 fL (7.4-10.4); MONOCYTES # (AUTO) 0.69 x10^3/uL (0.2-0.8); MONOCYTES % (AUTO) 7 % (2-9); NEUTROPHILS # (AUTO) 7.78 x10^3/uL (1.8-6.8); NEUTROPHILS % (AUTO) 78 % (42-75); PLATELET COUNT 211 x10^3/uL (130-400); RED BLOOD COUNT 5.17 x10^6/uL (4.38-5.82); RED CELL DISTRIBUTION WIDTH 14.4 % (9.4-14.8)
[2019-11-04 05:25] VITALS: BP 118/94
[2019-11-04 05:32] LABS: CALCIUM 8.3 mg/dL (8.5-10.1)
[2019-11-04 05:45] LABS: ANION GAP 4 mmol/L (5-15); CHLORIDE 108 mmol/L (98-107)
[2019-11-04 06:55] VITALS: BP 133/83
[2019-11-04] MEDS: ENOXAPARIN 40 MG/0.4 ML SQ SCH (07:15)
[2019-11-04] MEDS: BENZONATATE 100 MG CAPSULE PO SCH (08:31)
[2019-11-04] MEDS: FLUTICASONE/VILANTEROL 200-25MCG/INH INH SCH (08:31)
== END 2019-11-04 12:57 | DRG 189 ==
LOC: ED 18:13 → EDIP 18:36 → 3N 20:01 → 4NW 10-16 17:00 → 3N 10-23 15:52
PROVIDERS: ADMIT Internal Medicine; ATTEND Hospitalist
DX: J96.21 Acute and chronic respiratory failure with hypoxia (principal); J44.1 Chronic obstructive pulmonary disease with (acute) exacerbation; I50.9 Heart failure, unspecified; R79.89 Other specified abnormal findings of blood chemistry; F17.210 Nicotine dependence, cigarettes, uncomplicated; Z59.0 Homelessness; Z91.19 Patient's noncompliance with other medical treatment and regimen; Z99.81 Dependence on supplemental oxygen; Z56.0 Unemployment, unspecified; Z80.1 Family history of malignant neoplasm of trachea, bronchus and lung; Z20.828 Contact with and (suspected) exposure to other viral communicable diseases
CPT/HCPCS: 36415; 36600; 71045; 80048; 80053; 82565; 82803; 83880; 84145; 84484; 85025; 87635; 93005; 93306; 94640; 96374; 96375; G0378; J1650; J1940; J7613; J7626; J7644; J2920; J2930; J7030; J7512; U0001-CS

== ENCOUNTER 2020-01-14 01:21 | Emergency (ER) | payer MEDICARE, OTHER ==
[~2020-01-14] VITALS: Ht 172.7 cm; Wt 50.0 kg
[~2020-01-14 01:21] MED LIST changes: +BENZ100C PO; +FLUT1BLS INH
--- NOTE | 2020-01-14 01:30 | NUR ---
Triage note: PT BIB EMS FROM HOME: PT HAS COPD, WEARS OXYGEN AT HOME. WENT TO SLEEP WITH OXYGEN IN CANISTER, AWOKEN SOB WITH NO OXYGEN BEING ADMINISTERED. PATIENT IS NOW 100% ON 3LNC, THIS IS PATIENT'S BASELINE. NO ADDITIONAL COMPLAINTS FROM PATIENT. Per Dr. Talavera, patient needs home [facility] Will monitor patient until then.
[2020-01-14 02:28] LABS: MEAN CORPUSCULAR HEMOGLOBIN 32.4 pg (27.5-34.5); MEAN CORPUSCULAR HGB CONC 32.2 g/dL (33.2-36.2); MEAN CORPUSCULAR VOLUME 100.5 fL (81-97); MEAN PLATELET VOLUME 9.6 fL (7.4-10.4); PLATELET COUNT 176 x10^3/uL (130-400); RED BLOOD COUNT 4.84 x10^6/uL (4.38-5.82); RED CELL DISTRIBUTION WIDTH 15.6 % (9.4-14.8)
[2020-01-14 02:29] LABS: ALANINE AMINOTRANSFERASE 29 U/L (12-78); ALBUMIN 3.1 g/dL (3.4-5.0); ANION GAP 4 mmol/L (5-15); CALCIUM 7.9 mg/dL (8.5-10.1); CHLORIDE 113 mmol/L (98-107); CREATININE 0.94 mg/dL (0.7-1.3)
[2020-01-14 02:33] LABS: ALKALINE PHOSPHATASE 61 U/L (45-117); BILIRUBIN,TOTAL 0.7 mg/dL (0.2-1.0); TOTAL PROTEIN 5.8 g/dL (6.4-8.2)
[2020-01-14 02:57] LABS: BASOPHILS # (AUTO) 0.05 x10^3/uL (0-0.1); BASOPHILS % (AUTO) 0 % (0-1); EOSINOPHILS # (AUTO) 0.38 x10^3/uL (0-0.4); EOSINOPHILS % (AUTO) 3 % (1-7); LYMPHOCYTES # (AUTO) 0.89 x10^3/uL (1-3.4); LYMPHOCYTES % (AUTO) 8 % (22-44); MD SCAN; MONOCYTES # (AUTO) 1.11 x10^3/uL (0.2-0.8); MONOCYTES % (AUTO) 10 % (2-9); NEUTROPHILS # (AUTO) 9.31 x10^3/uL (1.8-6.8); NEUTROPHILS % (AUTO) 79 % (42-75)
--- NOTE | 2020-01-14 07:00 | NUR ---
RECEIVED REPORT FROM FARRUKH. SPOKE WITH ALVINA ABOUT DISCHARGE PLAN. AWARE THAT PT OXYGEN SATURATION 85% ON RA. PT [facility] GET [facility] T[facility] TO TAKE HOME
--- NOTE | 2020-01-14 07:38 | NUR ---
PT STATES THAT HE HAS GONE TO [facility] IN THE PAST WHERE THEY GIVE HIM OXYGEN TANK WHEN HE RUNS OUT. PT FURTHER STATES THAT HE IS COMFORTABLE WITH NOT BEING ON OXYGEN FOR RIDE TO [facility].
--- NOTE | 2020-01-14 07:43 | NUR ---
[facility]OKE WITH [facility] WHO [facility] PT GETS TO ER THEY WILL GIVE HIM AN OXYGEN TANK TO TAKE HOME. PT GIVEN DISCHARGE PAPERS AND AMBULATED TO LOBBY WITH THIS RN WITH WALKER. PT TO [facility] WAITING OUTSIDE. PT ABLE TO GIVE WALKER TO BLENDER/BRAZE APPLICATOR TO PUT IN HIS TRUNK AND GET IN BACK OF [facility] WITH NO INCREASED SOB NOTED.
[2020-01-14 07:45] VITALS: BP 110/72
== END 2020-01-14 07:48 | disposition home or self-care (01) ==
LOC: ED 06:50
DX: J44.1 Chronic obstructive pulmonary disease with (acute) exacerbation (principal); R06.00 Dyspnea, unspecified; R09.02 Hypoxemia; I50.9 Heart failure, unspecified; R06.02 Shortness of breath
CPT/HCPCS: 36415; 71045; 80053; 83880; 85025; 93005; 99285